=== PATIENT | female | born 1990 | race Hispanic/Latino ===

== ENCOUNTER → 2023-04-15 | Emergency (ER) | payer SELFPAY ==
[~2023-04-15] MED LIST: ASPIRIN 81 MG CHEWABLE TABLET ONE; CEFTRIAXONE 1000 MG/VIAL ONE; HYDROCODONE/APAP 10/325 TAB ONE; LORAZEPAM 1 MG TABLET ONE; NA CHLORIDE 0.9% 50 ML ONE; PROPRANOLOL HCL 40 MG TAB ONE
[2023-04-15 22:50] LABS: Protime INR 1.19
[2023-04-15 22:51] LABS: Absolute Lymphocytes (CBC) 4.9 K/uL (0.7-4.9); Hematocrit 44.5 % (36.0-45.0); Lymphocytes % 38.8 % (15.3-44.8); MCV 80.8 fL (80-100); MPV 8.1 fL (7.6-11.3); Platelets 296 thou/uL (152-406)
[2023-04-15 23:06] LABS: ALT/SGPT 29 U/L (13-56); AST/SGOT 21 U/L (15-37); Albumin 3.9 g/dL (3.4-5.0); Alkaline Phosphatase 103 U/L (45-117); BUN Blood Urea Nitrogen 12 mg/dL (7-18); Bicarbonate 28 mEq/L (21-32); Bilirubin Direct 0.2 mg/dL (0-0.2); Bilirubin Indirect, Calculated 0.4 mg/dL (0.2-0.8); Bilirubin Total 0.6 mg/dL (0.2-1.0); Glomerular Filtration Rate 92 ml/min (=/>90); Glucose Level 138 mg/dL (74-106); Magnesium 1.9 mg/dL (1.6-2.4); NT PRO-BNP 7 pg/mL (<125); Potassium 3.5 mEq/L (3.5-5.1); Protein, Total 8.6 g/dL (6.4-8.2); Sodium Level 136 mEq/L (136-145)
[2023-04-15 23:10] LABS: Troponin High Sensitivity < 3.0 pg/mL (<58.9)
--- NOTE | 2023-04-16 02:40 | ER ---
Nurse's Notes [facility] Name: Genoveva Jansen Age: 32 yrs Sex: Female : 1990 Arrival Date: 04/15/2023 Time: 21:48 Bed 3 Private MD: Diagnosis: Chest pain, unspecified;Anxiety disorder, unspecified;Solitary pulmonary nodule;Pulmonary nodule, anxiety attack, palpitations Presentation: 04/15 21:49 Chief complaint: EMS states: "toned out for chest tightness, heat flashes, and feeling mb9 jittery for the past few days". Coronavirus screen: Vaccine status: Patient reports being unvaccinated. Ebola Screen: No symptoms or risks identified at this time. Initial Sepsis Screen: Does the patient meet any 2 criteria? No. Patient's initial sepsis screen is negative. Does the patient have a suspected source of infection? No. Patient's initial sepsis screen is negative. Risk Assessment: Do you want to hurt yourself or someone else? Patient reports no desire to harm self or others. Onset of symptoms was April 15, 2023. 21:49 Method Of Arrival: EMS: [facility] mb9 21:49 Acuity: KENRICK 3 mb9 Historical: - Allergies: 21:51 No Known Allergies; mb9 - Home Meds: 21:51 lamotrigine 25 mg oral tablet 1 tab daily for 7 days [Active]; lamotrigine 25 mg oral jw7 tablet 2 tabs daily [Active]; lisinopril 20 mg Oral tablet 1 tab daily [Active]; atorvastatin 20 mg oral tablet 1 tab every day at bedtime [Active]; hydroxyzine HCl 50 mg oral tablet 1 tab 2 times per day [Active]; gabapentin 300 mg oral capsule 1 cap 3 times per day [Active]; metformin 500 mg Oral tablet 1 tab daily [Active]; - PMHx: 21:51 Hypertensive disorder; Diabetes mellitus; mb9 - PSHx: 21:51 None; mb9 - Immunization history:: Adult Immunizations up to date. - Social history:: Smoking status: Patient denies any tobacco usage or history of. - Family history:: not pertinent. Screenin:00 [facility] ED Fall Risk Assessment (Adult) History of falling in the last 3 months, jw7 including since admission No falls in past 3 months (0 pts) Score/Fall Risk Level 0 - 2 = Low Risk Oriented to surroundings, Maintained a safe environment, Educated pt \\T\\ family on fall prevention, incl call for assistance when getting out of bed. Abuse screen: Denies threats or abuse. Denies injuries from another. Nutritional screening: No deficits noted. Tuberculosis screening: No symptoms or risk factors identified. Assessment: 22:00 General: Appears in no apparent distress. comfortable, Behavior is calm, cooperative. jw7 22:00 Pain: Complains of pain in chest and abdomen Pain does not radiate. Pain currently is 8 jw7 out of 10 on a pain scale. Quality of pain is described as pressure, sharp, Pain began suddenly, Is continuous. Neuro: Bloom Agitation-Sedation Scale (RASS): 0 - Alert and Calm Level of Consciousness is awake, alert, obeys commands, Oriented to person, place, time, situation. Cardiovascular: Capillary refill < 3 seconds Clubbing of nail beds is absent JVD is absent Patient's skin is warm and dry. Respiratory: Airway is patent Trachea midline Respiratory effort is even, unlabored, Respiratory pattern is regular, symmetrical. GI: Abdomen is round non-distended, Bowel sounds present X 4 quads. Abd is soft and non tender X 4 quads. : No deficits noted. No signs and/or symptoms were reported regarding the genitourinary system. EENT: No deficits noted. No signs and/or symptoms were reported regarding the EENT system. Derm: Skin is intact, is healthy with good turgor, Skin is dry, Skin is normal, Skin temperature is warm. Musculoskeletal: Circulation, motion, and sensation intact. Range of motion: intact in all extremities. 23:20 Reassessment: Patient appears in no apparent distress at this time. No changes from jw7 previously documented assessment. Patient and/or family updated on plan of care and expected duration. Pain level reassessed. Patient is alert, oriented x 3, equal unlabored respirations, skin warm/dry/pink. 04/16 00:49 Reassessment: Patient appears in no apparent distress at this time. No changes from tm6 previously documented assessment. Patient and/or family updated on plan of care and expected duration. Pain level reassessed. Patient is alert, oriented x 3, equal unlabored respirations, skin warm/dry/pink. 01:54 Reassessment: Patient appears in no apparent distress at this time. No changes from tm6 previously documented assessment. Patient and/or family updated on plan of care and expected duration. Pain level reassessed. Patient is alert, oriented x 3, equal unlabored respirations, skin warm/dry/pink. 02:58 Reassessment: Patient appears in no apparent distress at this time. Patient and/or jw7 family updated on plan of care and expected duration. Pain level reassessed. Patient is alert, oriented x 3, equal unlabored respirations, skin warm/dry/pink. Patient states symptoms have improved. Vital Signs: 04/15 21:49 BP 151 / 95; Pulse 93; Resp 18; Temp 98; Pulse Ox 97% on R/A; Weight 104.33 kg; Height mb9 5 ft. 3 in. ; 23:00 BP 124 / 71; Pulse 86; Resp 16 S; Pulse Ox 99% on R/A; jw7 04/16 00:48 BP 115 / 76; Pulse 81; Pulse Ox 98% on R/A; tm6 01:53 BP 132 / 95; Pulse 70; Pulse Ox 98% on 2 lpm NC; tm6 02:59 BP 123 / 81; Pulse 71; Resp 14 S; Pulse Ox 95% on R/A; jw7 04/15 21:49 Body Mass Index 40.74 (104.33 kg, 160.02 cm) mb9 [place] Coma Score: 02:21 Eye Response: spontaneous(4). Motor Response: obeys commands(6). Verbal Response: sp4 oriented(5). Total: 15. ED Course: 04/15 21:49 Patient arrived in ED. mb9 21:51 Triage completed. mb9 21:51 Arm band placed on. mb9 21:51 Placed in gown. Bed in low position. Call light in reach. Side rails up X 1. Client mb9 placed on continuous cardiac and pulse oximetry monitoring. NIBP monitoring applied. shelter monitor on. 21:52 Sarah Rooney RN is Primary Nurse. mb9 21:52 Missed attempt(s): 22 gauge in right hand. Bleeding controlled, band aid applied, mb9 catheter tip intact. 21:55 Jassi Hughes MD is Attending Physician. sp4 22:18 Initial lab(s) drawn, by me, sent to lab. EKG done, by ED staff, reviewed by Jassi Hughes MD. Inserted saline lock: 22 gauge in left forearm, using aseptic technique. Blood collected. 22:46 XRAY Chest (1 view) In Process Unspecified. EDMS 04/16 01:00 CT Chest For PE Angio In Process Unspecified. EDMS 02:38 Crow Kuo DO is Referral Physician. sp4 02:59 No provider procedures requiring assistance completed. IV discontinued, intact, jw7 bleeding controlled, No redness/swelling at site. Pressure dressing applied. 03:00 Provided Education on: discharge instructions. jw7 Administered Medications: 04/15 22:29 Drug: LORazepam PO 2 mg PO once Route: PO; jw7 04/16 03:01 Follow up: Response: No adverse reaction; Marked relief of symptoms jw7 04/15 22:29 Drug: [place] PO 10 mg-325 mg 1 tabs PO once Route: PO; jw7 04/16 03:01 Follow up: Response: No adverse reaction; Marked relief of symptoms jw7 04/15 22:29 Drug: Propranolol PO 40 mg PO once Route: PO; jw7 04/16 03:00 Follow up: Response: No adverse reaction jw7 04/15 22:29 Drug: Aspirin PO Chewable Tablet 324 mg PO once; 81 mg tablets x 4 Route: PO; jw7 04/16 03:00 Follow up: Response: No adverse reaction jw7 02:00 Drug: Rocephin - Rocephin (cefTRIAXone) IVPB 1 grams IVPB once over 30 mins; (mix in 50 tm6 mL NS) Route: IVPB; Infused Over: 30 mins; Site: left forearm; 03:00 Follow up: Response: No adverse reaction; IV Status: Completed infusion; IV Intake: [id number] Medication: 03:00 VIS not applicable for this client. jw7 Intake: 03:00 IV: 50ml; Total: 50ml. jw7 Outcome: 02:40 Discharge ordered by . sp4 02:59 Discharged to Rehab Facility jw7 02:59 Condition: stable 02:59 Discharge instructions given to patient, Instructed on discharge instructions, follow up and referral plans. Demonstrated understanding of instructions, follow-up care, 03:02 Patient left the ED. jw7 Signatures: Dispatcher [facility] Sofia Healy RN RN jw7 Sarah Rooney RN RN mb9 Jassi Hughes MD MD sp4 Billy Subramanian RN RN tm6
--- NOTE | 2023-04-16 02:40 | EDPHYS ---
Physician Documentation [facility] Name: Genoveva Jansen Age: 32 yrs Sex: Female : 1990 Arrival Date: 04/15/2023 Time: 21:48 Bed 3 Private MD: ED Physician Jassi Hughes HPI: 04/15 21:56 This 32 yrs old Female presents to ER via EMS with complaints of complaint . sp4 22:02 Presents with palpitations, dyspnea, chest pain for the past 2 days.. sp4 02 02:35 Patient presents from [facility] where she has been in the rehab for crystal meth. . sp4 02:36 Patient states she has been having chest pains for the past several days. Nonexertional sp4 midsternal pains associated with shortness of breath and palpitations. . Historical: - Allergies: 04/15 21:51 No Known Allergies; mb9 - Home Meds: 21:51 lamotrigine 25 mg oral tablet 1 tab daily for 7 days [Active]; lamotrigine 25 mg oral jw7 tablet 2 tabs daily [Active]; lisinopril 20 mg Oral tablet 1 tab daily [Active]; atorvastatin 20 mg oral tablet 1 tab every day at bedtime [Active]; hydroxyzine HCl 50 mg oral tablet 1 tab 2 times per day [Active]; gabapentin 300 mg oral capsule 1 cap 3 times per day [Active]; metformin 500 mg Oral tablet 1 tab daily [Active]; - PMHx: 21:51 Hypertensive disorder; Diabetes mellitus; mb9 - PSHx: 21:51 None; mb9 - Immunization history:: Adult Immunizations up to date. - Social history:: Smoking status: Patient denies any tobacco usage or history of. - Family history:: not pertinent. ROS: 04/16 02:36 Constitutional: Negative for fever, chills, and weight loss, positive for chest pains, sp4 palpitations, shortness of breath Psych: Negative for depression, positive for anxiety All other systems are negative, Exam: 02:21 ECG was reviewed by the Attending Physician. EKG reveals normal sinus rhythm at the sp4 rate of 89. EKG time 2157 02:36 Constitutional: This is a well developed, well nourished patient who is awake, alert, sp4 and in no acute distress. Anxious appearing. Head/Face: Normocephalic, atraumatic. Eyes: Pupils equal round and reactive to light, extra-ocular motions intact. Lids and lashes normal. Conjunctiva and sclera are not injected. Cornea within normal limits. Periorbital areas with no swelling, redness, or edema. ENT: Nares patent. No nasal discharge, no septal abnormalities noted. Tympanic membranes are normal and external auditory canals are clear. Oropharynx with no redness, swelling, or masses, exudates, or evidence of obstruction, uvula midline. Mucous membranes moist. Neck: Trachea midline, no thyromegaly or masses palpated, and no cervical lymphadenopathy. Supple, full range of motion without nuchal rigidity, or vertebral point tenderness. Chest/axilla: Normal chest wall appearance and motion. Nontender with no deformity. No lesions are appreciated. Cardiovascular: Regular rate and rhythm with a normal S1 and S2. No gallops, murmurs, or rubs. Normal PMI, no JVD. No pulse deficits. Respiratory: Lungs have equal breath sounds bilaterally, clear to auscultation and percussion. No rales, rhonchi or wheezes noted. No increased work of breathing, no retractions or nasal flaring. Abdomen/GI: Soft, non-tender, with normal bowel sounds. No distension or tympany. No guarding or rebound. No evidence of tenderness throughout. Back: No spinal tenderness. No costovertebral tenderness. Skin: Warm, dry with normal turgor. Normal color with no rashes, no lesions, and no evidence of cellulitis. MS/ Extremity: Pulses equal, no cyanosis. Neurovascular intact. Full, normal range of motion. Neuro: Awake and alert, GCS 15, oriented to person, place, time, and situation. Cranial nerves II-XII grossly intact. Motor strength 5/5 in all extremities. Sensory grossly intact. Psych: Awake, alert, with orientation to person, place and time. Behavior, mood, and affect are within normal limits Vital Signs: 04/15 21:49 BP 151 / 95; Pulse 93; Resp 18; Temp 98; Pulse Ox 97% on R/A; Weight 104.33 kg; Height mb9 5 ft. 3 in. ; 23:00 BP 124 / 71; Pulse 86; Resp 16 S; Pulse Ox 99% on R/A; jw7 04/16 00:48 BP 115 / 76; Pulse 81; Pulse Ox 98% on R/A; tm6 01:53 BP 132 / 95; Pulse 70; Pulse Ox 98% on 2 lpm NC; tm6 02:59 BP 123 / 81; Pulse 71; Resp 14 S; Pulse Ox 95% on R/A; jw7 04/15 21:49 Body Mass Index 40.74 (104.33 kg, 160.02 cm) mb9 [place] Coma Score: 02:21 Eye Response: spontaneous(4). Motor Response: obeys commands(6). Verbal Response: sp4 oriented(5). Total: 15. MDM: 04/15 22:11 Patient medically screened. sp4 04/16 00:25 ED course: CLINICAL HISTORY: CHEST PAIN. COMPARISON: None. TECHNIQUE: Single viewAP sp4 chest radiograph(s). FINDINGS: Possible small faint opacity versus summation artifact in the medial right lung base. No pleural effusion. No pneumothorax. Nonenlarged cardiomediastinal silhouette. No significant osseous abnormality. IMPRESSION: Possible small faint opacity versus summation artifact in the medial right lung base. . 02:21 ED course: PROCEDURE: Chest For Pe Angio CLINICAL HISTORY: CHEST PAIN TECHNIQUE: sp4 Contiguous axial images obtained through the chest during angiographic phase following the uneventful administration of IV contrast. Sagittal and coronal reformatted images were provided. 3-D MIP reformatted images were provided. This exam was performed according to our departmental dose-optimization program, which includes automated exposure control, adjustment of the mA and/or kV according to patient size and/or use of iterative reconstruction technique. COMPARISON: No prior exams provided for comparison. FINDINGS: Diagnostic quality: There is adequate opacification of the pulmonary arterial tree. Lungs: No focal consolidation. Airways are patent. 5 mm pulmonary nodule in the left upper lobe. In this age group this may be post inflammatory. Recommend short interval follow-up in 3-4 months to assess for stability or interval change Pleura: No effusion. No pneumothorax. Heart and pericardium: The heart is normal in size. No pericardial effusion. Mediastinum and lizzy: No pathologically enlarged lymph nodes. Lower neck and chest wall: Unremarkable Vessels: No pulmonary arterial filling defects. No thoracic aortic aneurysm. Upper abdomen: Diffuse fatty infiltration of the liver. Bones: Unremarkable IMPRESSION: 1. No pulmonary embolic disease. 2. 5 mm pulmonary nodule in the left upper lobe. In this age group this may be post inflammatory. Recommend short interval follow-up in 3-4 months to assess for stability or interval change. 3. Diffuse fatty infiltration of the liver. . 02:37 Differential Diagnosis altered mental status, sepsis, flu, Palpitations , anxiety . 4 Data reviewed: vital signs, nurses notes, EMS record, lab test result(s), EKG, radiologic studies, CT scan, plain films. Consideration of Admission/Observation Escalation of care including admission/observation considered. ED course: Patient basically has unremarkable workup. 5 mm left pulmonary nodule incidental finding -will advise follow-up with pump servicer helper in 3 to 4 months. Patient is stable for discharge to the [facility] rehab. 04/15 22:01 Order name: Basic Metabolic Panel; Complete Time: 00:23 sp4 04/15 22:01 Order name: CBC with Diff; Complete Time: 00:23 sp4 04/15 22:01 Order name: LFT's; Complete Time: 00:23 sp4 04/15 22:01 Order name: Magnesium; Complete Time: 00:23 sp4 04/15 22:01 Order name: NT PRO-BNP; Complete Time: 00:23 sp4 04/15 22:01 Order name: PT-INR; Complete Time: 00:23 sp4 04/15 22:01 Order name: Troponin HS; Complete Time: 00:23 sp4 04/15 22:02 Order name: TSH; Complete Time: 00:23 sp4 04/15 22:02 Order name: T4 Free; Complete Time: 00:23 sp4 04/15 22:02 Order name: Test, Serum; Complete Time: 00:23 sp4 04/15 22:02 Order name: CRP; Complete Time: 00:23 sp4 04/15 22:02 Order name: Hemoglobin A1c sp4 04/16 00:26 Order name: Blood Culture Adult (2) sp4 04/16 00:29 Order name: Lactate w/ 2H reflex if indic.; Complete Time: 02:35 jw7 04/15 22:01 Order name: XRAY Chest (1 view) sp04/16 00:28 Order name: CT Chest For PE Angio sp4 04/15 22:01 Order name: EKG; Complete Time: 22:02 sp4 04/15 22: Order name: Cardiac monitoring; Complete Time: 22:18 sp4 04/15 22: Order name: EKG - Nurse/Tech; Complete Time: 22:18 sp4 04/15 22: Order name: IV Saline Lock; Complete Time: 22:18 sp4 04/15 22: Order name: Labs collected and sent; Complete Time: 22:18 sp4 04/15 22: Order name: O2 Per Protocol; Complete Time: :18 sp4 04/15 22: Order name: O2 Sat Monitoring; Complete Time: 22:18 sp4 EC: Rate is 89 beats/min. Rhythm is regular, Normal Sinus Rhythm. QRS [place] is Normal. [place] sp4 interval is normal. QRS interval is normal. QT interval is normal. No Q waves. T waves are Normal. No ST changes noted. Clinical impression: Normal ECG. Interpreted by me. Reviewed by me. Administered Medications: 04/15 22:29 Drug: LORazepam PO 2 mg PO once Route: PO; jw7 04/16 03:01 Follow up: Response: No adverse reaction; Marked relief of symptoms 7 04/15 22:29 Drug: [place] PO 10 mg-325 mg 1 tabs PO once Route: PO; jw7 04/16 03:01 Follow up: Response: No adverse reaction; Marked relief of symptoms 7 04/15 22:29 Drug: Propranolol PO 40 mg PO once Route: PO; jw7 04/16 03:00 Follow up: Response: No adverse reaction 7 04/15 22:29 Drug: Aspirin PO Chewable Tablet 324 mg PO once; 81 mg tablets x 4 Route: PO; jw7 04/16 03:00 Follow up: Response: No adverse reaction jw7 02:00 Drug: Rocephin - Rocephin (cefTRIAXone) IVPB 1 grams IVPB once over 30 mins; (mix in 50 tm6 mL NS) Route: IVPB; Infused Over: 30 mins; Site: left forearm; 03:00 Follow up: Response: No adverse reaction; IV Status: Completed infusion; IV Intake: [id number] Disposition Summary: 04/16/23 02:40 Discharge Ordered Problem: new sp4 Symptoms: have improved sp4 Condition: Stable sp4 Diagnosis - Chest pain, unspecified sp4 - Anxiety disorder, unspecified sp4 - Solitary pulmonary nodule sp4 - Pulmonary nodule, anxiety attack, palpitations sp4 Followup: sp4 - With: Crow Kuo DO - When: in 3 to 4 months for follow up - Reason: Discharge Instructions: - Discharge Summary Sheet sp4 - Pulmonary Nodule, [id number] sp4 - Managing Anxiety, Adult sp4 Forms: - Work release form jw7 - Patient Portal Instructions sp4 Signatures: Dispatcher [employer] Sofia Phillips RN RN jw7 Sarah Rooney RN RN mb9 Jassi Hughes MD MD sp4 Billy Subramanian RN RN tm6
--- NOTE | 2023-04-16 13:34 | RAD REPORT ---
EXAM DESCRIPTION: RAD - Chest Single View - 04/15/2023 10:44 pm CLINICAL HISTORY: CHEST PAIN. COMPARISON: None. TECHNIQUE: Single view AP chest radiograph(s). FINDINGS: Possible small faint opacity versus summation artifact in the medial right lung base. No p leural effusion. No pneumothorax. Nonenlarged cardiomediastinal silhouette. No significant osseous ab normality. IMPRESSION: Possible small faint opacity versus summation artifact in the medial right lung base. Electronically signed by: Melia Humphrey MD 04/15/2023 10:57 PM TOOL CRIB ATTENDANT Due to temporary technical issues with the PACS/Fluency reporting system, reports are being signed by the in house radiologist without review as a courtesy to ensure prompt reporting. The interpreting r adiologist is fully responsible for the content of the report.
--- NOTE | 2023-04-16 13:47 | RAD REPORT ---
EXAM DESCRIPTION: CT - Chest For Pe Angio - 04/16/2023 7:01 am CLINICAL HISTORY: CHEST PAIN TECHNIQUE: Contiguous axial images obtained through the chest during angiographic phase following th e uneventful administration of IV contrast. Sagittal and coronal reformatted images were provided. 3- D MIP reformatted images were provided. This exam was performed according to our departmental dose-optimization program, which includes autom ated exposure control, adjustment of the mA and/or kV according to patient size and/or use of iterati ve reconstruction technique. COMPARISON: No prior exams provided for comparison. FINDINGS: Diagnostic quality: There is adequate opacification of the pulmonary arterial tree. Lungs: No focal consolidation. Airways are patent. 5 mm pulmonary nodule in the left upper lobe. In this age group this may be post inflammatory. Recomm end short interval follow-up in 3-4 months to assess for stability or interval change Pleura: No effusion. No pneumothorax. Heart and pericardium: The heart is normal in size. No pericardial effusion. Mediastinum and lizzy: No pathologically enlarged lymph nodes. Lower neck and chest wall: Unremarkable Vessels: No pulmonary arterial filling defects. No thoracic aortic aneurysm. Upper abdomen: Diffuse fatty infiltration of the liver. Bones: Unremarkable IMPRESSION: 1. No pulmonary embolic disease. 2. 5 mm pulmonary nodule in the left upper lobe. In this age group this may be post inflammatory. R ecommend short interval follow-up in 3-4 months to assess for stability or interval change. 3. Diffuse fatty infiltration of the liver. Electronically signed by: Mau Palm MD 04/16/2023 01:32 AM PROCUREMENT ASSISTANT Due to temporary technical issues with the PACS/Fluency reporting system, reports are being signed by the in house radiologist without review as a courtesy to ensure prompt reporting. The interpreting r adiologist is fully responsible for the content of the report.
--- NOTE | 2023-04-16 14:58 | EKG ---
Test Date: 2023-04-15 Test Time: 21:58:13 Level Vial Inspector And Tester: BF MEASUREMENT RESULTS: Intervals: Rate: 89 MD: 130 QRSD: 80 QT: 364 QTc: 442 [place]: P: 49 MD: 130 QRS: 77 T: 64 INTERPRETIVE STATEMENTS: Normal sinus rhythm Normal ECG No previous ECG available for comparison Electronically Signed On 04-16-23 14:57:03 [employer] by Charles Taylor
[2023-04-16 17:02] VITALS: BP 123/81; TEMP 98; O2SAT 95
== END ==
LOC: ER 21:48
DX: R07.9 Chest pain, unspecified (principal); F41.0 Panic disorder [episodic paroxysmal anxiety]; F41.9 Anxiety disorder, unspecified; R91.1 Solitary pulmonary nodule; R00.2 Palpitations; I10 Essential (primary) hypertension; E11.9 Type 2 diabetes mellitus without complications
CPT/HCPCS: 36415; 71045; 71275; 80048; 80076; 83735; 83880; 84439; 84443; 84484; 84703; 85025; 85610; 86140; 93005; Q9967